=== PATIENT | male | born 1975 | race Caucasian/White ===

== ENCOUNTER 2019-01-16 01:49 | Emergency (ER) | payer OTHER ==
[~2019-01-16] VITALS: Ht 175.3 cm; Wt 109.1 kg
[2019-01-16 01:52] VITALS: Ht 175.3 cm; Wt 109.1 kg
[2019-01-16] MEDS ORDERED: PROPAFENONE HC150 MG PO (01:54)
[2019-01-16] MEDS ORDERED: CARDIZEM120 MG PO (01:54)
[2019-01-16 02:40] LABS: BASOPHILS 0.3 % (0-2); EOSINOPHILS 1.9 % (0-7); HEMATOCRIT 42.4 % (42.0-54.0); HEMOGLOBIN 14.4 g/dL (13.5-17.5); IMMATURE GRANULOCYTES 0.3 % (0-5); LYMPHOCYTES 20.4 % (15-50); MCH 29.6 pg (26.0-34.0); MCV 87.2 fL (80.0-100.0); MEAN PLATELET VOLUME 9.5 fL (7.4-10.4); MONOCYTES 10.6 % (2-11); NEUTROPHILS 66.5 % (40-80); PLATELET COUNT 251 10x3/uL (130-400); RBC 4.86 10x6/uL (4.20-6.10); RDW 13.4 % (11.5-14.5); WBC 11.9 10x3/uL (4.8-10.8)
[2019-01-16 02:50] LABS: CALC OSMOLALITY 283 mosm/kg (275-300); CALCIUM 8.4 mg/dL (8.5-10.1); CARBON DIOXIDE 25.3 mmol/L (21.0-32.0); CHLORIDE - SERUM 106 mmol/L (98-107); CREATININE - SERUM 0.9 mg/dL (0.6-1.3); GLUCOSE 106 mg/dL (74-106); POTASSIUM - SERUM 4.7 mmol/L (3.5-5.1); SODIUM 142 mmol/L (136-145); UREA NITROGEN 14 mg/dL (7-18); eGFR NON AFRICAN AMERICAN > 90 mL/min (90-120)
[2019-01-16 02:56] LABS: ALBUMIN 3.9 g/dL (3.4-5.0); ALKALINE PHOSPHATASE 47 U/L (46-116); ALT (SGPT) 44 U/L (10-68); BILIRUBIN - TOTAL 0.91 mg/dL (0.2-1.3); LIPASE 84 U/L (73-393); PROTEIN - SERUM 7.1 g/dL (6.4-8.2)
[2019-01-16 02:58] LABS: APPEARANCE CLEAR (CLEAR); BILIRUBIN NEGATIVE (NEGATIVE); COLOR YELLOW (YELLOW); GLUCOSE NEGATIVE (NEGATIVE); KETONE NEGATIVE (NEGATIVE); NITRITE NEGATIVE (NEGATIVE); PROTEIN NEGATIVE (NEGATIVE); UROBILINOGEN NORMAL (NORMAL)
[2019-01-16 03:02] LABS: BACTERIA FEW /hpf (NEGATIVE); EPITHELIAL CELLS 0-5 /hpf (0-5); MUCUS <1+ /lpf (NONE SEEN); RED CELLS - URINE NONE SEEN /hpf (0-5); WHITE CELLS - URINE 0-5 /hpf (NEGATIVE)
[2019-01-16] MEDS ORDERED: CIPRO500 MG PO (04:55)
[2019-01-16] MEDS ORDERED: FLAGYL500 MG PO (04:55)
[2019-01-16 05:28] VITALS: BP 129/71
== END 2019-01-16 05:28 | disposition home or self-care (01) ==
LOC: D.ER 01:49
PROVIDERS: Family Medicine
DX: K57.92 Diverticulitis of intestine, part unspecified, without perforation or abscess without bleeding (principal)

== ENCOUNTER → 2019-07-24 08:50 | Outpatient (CLI) | payer OTHER ==
[2019-01-16 01:52] VITALS: BMI 35.5
[~2019-07-24 08:50] MED LIST: CARDIZEM120 MG PO; CIPRO500 MG PO; FLAGYL500 MG PO; PROPAFENONE HC150 MG PO
== END | disposition home or self-care (01) ==
LOC: D.RT 05-09 11:00
PROVIDERS: ATTEND Nurse Practitioner
DX: R05 Cough (principal)